=== PATIENT | male | born 1970 | race Caucasian/White ===

== ENCOUNTER 2021-06-26 06:35 | Day surgery (SDC) | payer BC ==
[~2021-06-26] VITALS: Ht 167.6 cm; Wt 100.4 kg
[~2021-06-26 06:35] MED LIST: FENO48 PO; LISI20 PO; METF500 PO; OMEP40CA12 PO; PANT40 PO; PARO20 PO
[2021-06-26] MEDS ORDERED: LOSA50 PO (06:57)
[2021-06-26] MEDS ORDERED: GEMF600 PO (06:58)
[2021-06-26] MEDS ORDERED: TADA10TA (06:58)
[2021-06-26] MEDS ORDERED: INSULANI (06:59)
[2021-06-26] MEDS ORDERED: TRULICITY1.5 MG/0.1 (06:59)
[2021-06-26] MEDS ORDERED: BENZ100A PO (07:00)
== END 2021-06-26 08:40 | disposition home or self-care (01) ==
LOC: ORSCSDS 06:35
PROVIDERS: Orthopaedic Surgery
PROC: 01N50ZZ Release Median Nerve, Open Approach (ICD-10-PCS; principal; 2021-06-26 08:00)
DX: G56.01 Carpal tunnel syndrome, right upper limb (principal); I10 Essential (primary) hypertension; K21.9 Gastro-esophageal reflux disease without esophagitis; E11.9 Type 2 diabetes mellitus without complications; E66.9 Obesity, unspecified; Z68.35 Body mass index [BMI] 35.0-35.9, adult; Z79.4 Long term (current) use of insulin; Z79.899 Other long term (current) drug therapy
CPT/HCPCS: 82947; J0690; J2704; J7120